=== PATIENT | male | born 1960 | race Caucasian/White ===

== ENCOUNTER 2024-03-17 10:08 | Emergency (ER) | payer OTHER, SELFPAY ==
[2024-03-17 10:15] VITALS: BP 146/83; PULSE 75; RESP 19; TEMP 37.2; O2SAT 97; BMI 20.2
[2024-03-17 10:46] VITALS: PULSE 90; RESP 16; O2SAT 98
--- NOTE | 2024-03-17 11:03 | XR_ITS ---
Examination: PA lateral chest 2 views TECHNIQUE: Upright PA lateral chest 2 views INDICATIONS: Fever coughing today. FINDINGS: Normal heart size No pneumonia or pulmonary edema The osseous structures are intact IMPRESSION: No pneumonia or pulmonary edema
--- NOTE | 2024-03-17 11:04 | EDNOTE_ITS ---
<Statement entered by Scarlett Izaguirre MD - 03/24/24 12:01> As co-signing physician, I was present and available for consult prn. I concur with the plan and care as documented by the midlevel provider. ED Weakness RME/HPI General Chief complaint: Weakness Stated complaint: WEAKNESS Time Seen by Provider: 03/17/24 11:05 Source: patient Arrival date/time: 03/17/24 10:08 63-year-old male with a history of hypertension, hyperlipidemia, and a CVA presents to the emergency room with a chief complaint of generalized weakness, sore throat, headache, congestion x 3 days. Mode of arrival: ambulatory Limitations: no limitations Related Data Home Medications ?Medication ?Instructions ?Recorded ?Confirmed buprenorphine 5 mcg/hour weekly 5 mcg topical QWEEK 05/13/23 05/14/23 transdermal patch meloxicam 15 mg tablet 15 mg PO DAILY PRN Pain 05/13/23 05/13/23 nebivolol 10 mg tablet 10 mg PO DAILY 05/13/23 05/14/23 Previous Rx's ?Medication ?Instructions ?Recorded penicillin V potassium 500 mg 500 mg PO BID 10 days #20 tabs 03/17/24 tablet Allergies Allergy/AdvReac Type Severity Reaction Status Date / Time codeine AdvReac Intermediate UPSET Verified 05/14/23 11:56 STOMACH Review of Systems Review of Systems Systems Reviewed: All systems reviewed, normal except as documented Constitutional Constitutional: Reports system reviewed and no additional complaints, except as documented, Denies fatigue, Denies fever(s), Reports headache(s) and Denies weakness Eyes Eyes: Reports system reviewed and no additional complaints, except as documented, Denies blurry vision and Denies change in vision ENT Ears, Nose, Mouth, and Throat: Reports system reviewed and no additional complaints, except as documented, Denies otalgia, Reports headache(s), Reports nasal congestion, Reports sore throat, Denies throat swelling and Denies vertigo Cardiovascular Cardiovascular: Reports system reviewed and no additional complaints, except as documented, Denies chest pain, Denies dyspnea and Denies dyspnea on exertion Respiratory Respiratory: Reports system reviewed and no additional complaints, except as documented, Denies chest congestion, Denies cough, Denies dyspnea, Denies dyspnea on exertion and Denies wheezing Gastrointestinal Gastrointestinal: Reports system reviewed and no additional complaints, except as documented, Denies abdominal pain, Denies cramping, Denies nausea and Denies vomiting Genitourinary Genitourinary: Reports system reviewed and no additional complaints, except as documented, Denies dysuria and Denies hematuria Musculoskeletal Musculoskeletal: Reports system reviewed and no additional complaints, except as documented and Denies back pain Integumentary/Breasts Skin/Breast: Reports system reviewed and no additional complaints, except as documented and Denies wounds Neurologic Neurologic: Reports system reviewed and no additional complaints, except as documented, Denies confusion, Reports headache(s), Denies lack of coordination, Denies vertigo and Denies weakness Psychiatric Psychiatric: Reports system reviewed and no additional complaints, except as documented, Denies anxiety, Denies confusion, Denies depression, Denies paranoia, Denies suicidal ideation and Denies tactile hallucinations Endocrine Endocrine: Reports system reviewed and no additional complaints, except as documented and Denies fatigue Hematologic/Lymphatic Hematologic/Lymphatic: Reports system reviewed and no additional complaints, except as documented and Denies lymphadenopathy Allergic/Immunologic Allergic/Immunologic: Reports system reviewed and no additional complaints, except as documented, Denies throat swelling, Denies urticaria and Denies wheezing Past Medical History Past Medical History NEUROLOGIC: Negative Neurological Disorders or Seizures CARDIAC: Positive Cardiac Disorders, Angina and Hypertension; Negative Congestive Heart Failure RESPIRATORY: Negative Chronic Obstructive Pulmonary Disease (COPD) GASTROINTESTINAL: Negative Gastrointestinal Disorders GENITOURINARY: Negative Genitourinary Disorders or Renal Disease MUSCULOSKELETAL: Positive Musculoskeletal Disorders and Arthritis ENDOCRINE: Positive Endocrine Disorders and Diabetes Mellitus Type 2 (resolved); Negative Diabetes Mellitus Type 1 HEMATOLOGIC: Negative Blood Disorders PSYCHO/SOCIAL: Positive Anxiety (resolved after quitting alcohol consumption) OTHER HISTORY: Positive Chicken Pox, Measles and Cancer; Negative Blood Transfusions, Blood Transfusion Reaction or Anesthesia Reactions Surgical History SURGICAL: Positive Neurologic Surgery (SIATIC NERVE SURGERY X3) Social History SMOKING STATUS: Former smoker ED Exam General Limitations: Present no limitations General appearance: Present alert and in no apparent distress Head Head exam: Present atraumatic Eye Eye exam: Present normal appearance, PERRL and EOMI ENT ENT exam: Present normal exam, normal oropharynx and mucous membranes moist Neck Neck exam: Present normal inspection, full ROM and trachea midline Chest Chest inspection: Present normal inspection and symmetric chest wall rise Respiratory Respiratory exam: Present normal lung sounds bilaterally; Absent respiratory distress, wheezes, stridor, accessory muscle use or prolonged expiratory phase Cardiovascular Cardiovascular exam: Present regular rate, normal rhythm and normal heart sounds Abdominal Exam Abdominal exam: Present soft and normal bowel sounds; Absent distention, tenderness, guarding, rebound or rigidity Extremities Exam Extremities exam: Present normal inspection and full ROM Back Exam Back exam: Present normal inspection and full ROM Neurological Exam Neurological exam: Present alert, oriented X3 and CN II-XII intact Psychiatric Psychiatric exam: Present normal affect and normal mood Skin Skin exam: Present warm, dry, intact and normal color Course Quality Measures none Orders Category Date Time Status Bedside COVID-19 Antigen Test NOW Care 03/17/24 11:03 Active Bedside Influenza A&B Antigen Test NOW Care 03/17/24 11:03 Completed Insert IV NOW Care 03/17/24 13:17 Active XR chest 2V Stat Exams 03/17/24 11:03 Completed CBC Stat Lab 03/17/24 11:50 Completed CMP [Comprehensive Metabolic Panel] Stat Lab 03/17/24 11:50 Completed Strep A Rapid Stat Lab 03/17/24 13:58 Completed Clindamycin/Ns 600 mg Ivpb [Cleocin/Ns Ivpb] Med 03/17/24 14:40 Discontinued 600 mg in 50 ml IV X1 Sodium Chloride 0.9% 1000 ml [Ns] 1,000 ml Med 03/17/24 13:18 Discontinued IV 999 mls/hr Vital Signs Vital signs: Vital Signs Temperature 98.9 F 03/17/24 10:15 Pulse Rate 75 03/17/24 10:15 Respiratory Rate 19 03/17/24 10:15 Blood Pressure 146/83 H 03/17/24 10:15 Pulse Oximetry (%) 97 03/17/24 10:15 Oxygen Delivery Method Room Air 03/17/24 10:15 O2 saturation 97% within normal limits Weakness MDM Narrative MDM Narrative:: 63-year-old male with a history of hypertension, hyperlipidemia, and a CVA presents to the emergency room with a chief complaint of generalized weakness, sore throat, headache, congestion x 3 days. Clinically the patient appears nontoxic and in no apparent distress. Physical examination shows clear bilateral lung sounds and a normal nontender abdomen. CBC and CMP show mild hyponatremia. A bag of saline was given to the patient as well as some antibiotics. Patient's posterior pharynx has exudates and a cobblestone appearance. Strep test was completed and was negative however due to the patient's presentation and pain antibiotics were sent to the patient's pharmacy patient was discharged and educated to follow-up with his primary care provider return to the emergency room for any evidence of worsening signs or symptoms Patient data External records reviewed:: [facility] previous records Clinical information provided by:: patient Social determinants that could affect healthcare access:: none Patient has the following chronic illnesses:: No chronic illness How is presenting disease/condition affected by chronic disease/condition?: no chronic disease Evaluation data The following diagnostics were reviewed and interpreted by me:: lab results and radiology exam(s) Lab and/or radiology exams considered but not ordered:: Labs and radiology exams considered and ordered Interpretation Summary: N/A Medications / Prescriptions Medications or Prescriptions considered but not ordered:: Medication given Medication administrations:: Medication Administration History Discontinued Medications Sodium Chloride (Ns) 1,000 mls @ 999 mls/hr IV .Q1H1M ONE Stop: 03/17/24 14:18 Last Infusion: 03/17/24 14:51 Dose: Infused Documented By: Admin: 03/17/24 13:52 Dose: 999 mls/hr Documented By: OA Clindamycin/Sodium Chloride (Cleocin/Ns Ivpb) 600 mg in 50 mls @ 100 mls/hr IV X1 ONE Stop: 03/17/24 15:09 Last Admin: 03/17/24 14:49 Dose: 100 mls/hr Documented By: YASMANY Medication given Consultations Consultation(s) initiated? (list below): No Diagnosis Weakness Differential Diagnosis: hypoglycemia, dehydration and other (Pharyngitis) Most likely diagnosis given after review of the tests above:: Pharyngitis Admission Indicated Admission indicated?: not indicated Admission Request Was there a request for admission?: No Disposition Plan Disposition Plan: Discharge Discharge Attestation Discharge Attestation: The patient and all family members were given an opportunity to ask questions and understood the discharge instructions. Discharge instructions specifically effects, indications for sooner follow up or return to the emergency department, and the expected course of current diagnosis. Patient condition: Stable Discharge Plan Plan Patient Disposition: HOME (Self Care) Prescriptions/Referrals Prescriptions/Med Rec: New penicillin V potassium 500 mg tablet 500 mg PO BID 10 Days Qty: 20 0RF No Action meloxicam 15 mg tablet 15 mg PO DAILY PRN (Reason: Pain) Patient Comments: TAKE 1 TABLET BY MOUTH EVERY DAY WITH FOOD NEEDED nebivolol 10 mg tablet 10 mg PO DAILY Patient Comments: TAKE 1 TABLET BY MOUTH EVERY DAY FOR 90 DAYS buprenorphine 5 mcg/hour patch weekly 5 mcg TOPICAL QWEEK Hold Instructions: Resume on 05/15/23. Patient Comments: APPLY 1 PATCH TRANSDERMALLY EVERY 7 DAYS Referrals: Sivakumar Coppola MD [Primary Care Provider] - In 1 week Problem List Clinical Impression: Pharyngitis Patient/Caregiver Discharge Instructions Education Materials: ED Pharyngitis, Report Pending Additional Instructions: Please follow-up with your primary care provider in the next 24 to 40 hours. Antibiotics are sent to your pharmacy please pick them up and take them as indicated. For any evidence of worsening signs or symptoms please return to the emergency r oom immediately Print Language: [place] Stand Alone Forms: Julia Award Info., Patient Portal Info Letter PA/CAITIE Supervising Physician PA/CAITIE Supervising Physician: Dr. IZAGUIRRE
[2024-03-17 12:14] LABS: Basophils % (Auto) 0 % (0-2.5); Eosinophils # (Auto) 0.1 Thou/mm3 (0.0-0.5); Eosinophils % (Auto) 1 % (0-10); Hematocrit 41.3 % (41.0-53.0); Hemoglobin 14.5 g/dL (13.5-16.0); Immature Granulocytes % (Auto) 0 % (0-0); Immature Granulocytes Auto 0.04 Thou/mm3 (0.00-0.00); Lymphocytes # (Auto) 1.7 Thou/mm3 (1.0-4.8); Lymphocytes % (Auto) 14 % (10-50); Mean Corpuscular HGB Conc 35.1 g/dl (31.0-37.0); Mean Corpuscular Hemoglobin 29.9 pg (25.0-35.0); Mean Corpuscular Volume 85 fL (80-100); Monocytes # (Auto) 1.7 Thou/mm3 (0.0-0.8); Monocytes % (Auto) 14 % (0-12); Neutrophils # (Auto) 8.8 Thou/mm3 (1.8-7.7); Neutrophils % (Auto) 71 % (37-80); Nucleated Red Blood Cell % 0 /100 WBC (0); Platelet Count 318 Thou/mm3 (140-440); RDW Standard Deviation 41.5 fL (35.1-43.9); Red Blood Count 4.85 Miln/mm3 (4.50-5.90); White Blood Count 12.3 Thou/mm3 (3.8-10.6)
[2024-03-17 12:29] LABS: Alanine Aminotransferase 17 U/L (10-49); Albumin, Serum 4.1 gm/dL (3.4-4.8); Albumin/Globulin Ratio 1.2 (1.2-2.2); Alkaline Phosphatase 93 U/L (46-116); Anion Gap 6 (7-16); Aspartate Amino Transferase 16 U/L (0-34); BUN/Creatinine Ratio 11 Ratio (12-20); Bilirubin,Total 0.8 mg/dL (0.3-1.2); Blood Urea Nitrogen 8 mg/dL (9-23); Calcium 9.2 mg/dL (8.3-10.6); Calcium (Corrected) 9.2 mg/dL (8.5-10.1); Carbon Dioxide 27.8 mMol/L (20.0-31.0); Chloride 95 mMol/L (98-107); Creatinine (Component) 0.7 mg/dL (0.6-1.3); Estimated Creatinine Clearance 100.5 mL/min (>60); Globulin 3.5 gm/dL (2.3-3.5); Glucose 114 mg/dL (74-106); Osmolality,Calculated 258 (275-295); Potassium 3.9 mMol/L (3.4-5.1); Sodium 129 mMol/L (136-145); Total Protein 7.6 gm/dL (5.7-8.2); eGFR > 60 See Note
[2024-03-17] MEDS: SODIUM CHLORIDE 0.9% 1000 ML 1,000 ML 999 ML IV (13:52)
[2024-03-17 14:35] LABS: Strep A Rapid Negative (Negative)
[2024-03-17] MEDS: CLINDAMYCIN/NS 600 MG IVPB 600 MG/50 ML BAG 100 MG IV (14:49)
[2024-03-17 15:52] VITALS: BP 124/82; PULSE 88; RESP 16; TEMP 36.6; O2SAT 99
== END 2024-03-17 15:52 | disposition home or self-care (01) ==
PROVIDERS: Nurse Practitioner Family; Emergency Provider Emergency Medicine; PCP Family Medicine
DX: J02.9 Acute pharyngitis, unspecified (principal)
CPT/HCPCS: 36415; 71046; 80053; 85025; 87400; 87651; 87811; 99284; J7030; S0077; J0737

== ENCOUNTER → 2024-04-10 | Outpatient (CLI) | payer OTHER, SELFPAY ==
--- NOTE | 2024-04-10 12:00 | XR_ITS ---
Examination: CT chest with intravenous contrast 2-D sagittal and coronal reconstructions Exam date and time: April 10, 2024 1220 hours INDICATIONS: Smoking history 30 years with 40 pound weight loss beginning September 2023 CTDI:vol (mGy) 8.18 DLP: (mGycm) 335 Comparison January 11, 2023 Technique: Multiple axial sections of the thorax have been obtained. Sections have been obtained, 3 mm slice thickness. Mediastinal and lung density settings have been obtained. Intravenous contrast administered, 60 cc Isovue-370. 2-D sagittal, coronal images obtained. Low dose protocols were performed. One or more of the following dose reduction techniques were used; automated exposure control, adjustment of the mA and/or KV according to patient size, use of iterative reconstruction technique. Findings: No thoracic aortic aneurysm dilatation or dissection No pulmonary artery emboli No paratracheal tracheobronchial or bronchopulmonary adenopathy 2 mm pulmonary nodule left upper lobe image 116 2 mm pulmonary nodule right upper lobe CTA No pneumonia or pulmonary edema No pleural disease No visualized liver or splenic lesion No gallstones No pancreatic mass Nodular thickening left adrenal gland IMPRESSION: No mediastinal lymphadenopathy Subcentimeter pulmonary nodules as above, with this study as baseline recommend continued 6 month follow-up CT chest without contrast
== END | disposition home or self-care (01) ==
PROVIDERS: PCP Registered Nurse; Referring Provider Registered Nurse; Visit Provider Registered Nurse
DX: R91.8 Other nonspecific abnormal finding of lung field (principal)
CPT/HCPCS: 71260; A4649; Q9967

== ENCOUNTER → 2024-04-12 | Outpatient (CLI) | payer OTHER, SELFPAY ==
[2024-04-12 17:11] LABS: Amphetamine/Methamp Scrn,U Negative (Negative); Barbiturate Screen,Urine Negative (Negative); Benzodiazepines Screen,Urine Negative (Negative); Benzoylecgonine Screen, Ur Negative (Negative); Fentanyl Screen,Urine Negative (Negative); Opiate Screen,Urine Positive (Negative); THC Screen,Urine Positive (Negative)
== END | disposition home or self-care (01) ==
LOC: SLDO 14:51
PROVIDERS: Referring Provider Registered Nurse; Visit Provider Registered Nurse
DX: Z79.891 Long term (current) use of opiate analgesic (principal)
CPT/HCPCS: 80307

== ENCOUNTER 2024-06-02 11:01 | Day surgery (SDC) | payer OTHER, SELFPAY ==
--- NOTE | 2024-06-01 07:00 | EKG_ITS ---
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1960 Requested By: Isacc Tsang Order Number: [id number] Reading MD: Isacc Tsang Measurements Intervals [place] Rate: 52 P: 58 AL: 190 QRS: -66 QRSD: 94 T: 7 QT: 438 QTc: 410 Interpretive Statements SINUS BRADYCARDIA POSSIBLE LEFT ATRIAL ENLARGEMENT [-0.1mV P WAVE IN V1/V2] INCOMPLETE RIGHT BUNDLE BRANCH BLOCK [90+ ms QRS DURATION, TERMINAL R IN V1/V2, 40+ ms S IN I/aVL/V4/V5/V6] LEFT ANTERIOR FASCICULAR BLOCK [QRS AXIS <= -45, QR IN I, RS IN II] Compared to ECG 09/23/2021 16:01:56 Sinus rhythm no longer present Myocardial infarct finding no longer present /store/S0/[id number]/[id number].pdf
[2024-06-01 12:26] LABS: Basophils # (Auto) 0.1 Thou/mm3 (0.0-0.2); Basophils % (Auto) 1 % (0-2.5); Eosinophils # (Auto) 0.6 Thou/mm3 (0.0-0.5); Eosinophils % (Auto) 6 % (0-10); Hematocrit 42.3 % (41.0-53.0); Hemoglobin 13.9 g/dL (13.5-16.0); Immature Granulocytes % (Auto) 0 % (0-0); Immature Granulocytes Auto 0.03 Thou/mm3 (0.00-0.00); Lymphocytes % (Auto) 31 % (10-50); Mean Corpuscular HGB Conc 32.9 g/dl (31.0-37.0); Mean Corpuscular Hemoglobin 29.8 pg (25.0-35.0); Mean Corpuscular Volume 91 fL (80-100); Monocytes # (Auto) 0.9 Thou/mm3 (0.0-0.8); Monocytes % (Auto) 9 % (0-12); Neutrophils # (Auto) 5.2 Thou/mm3 (1.8-7.7); Neutrophils % (Auto) 53 % (37-80); Nucleated Red Blood Cell % 0 /100 WBC (0); Platelet Count 255 Thou/mm3 (140-440); RDW Standard Deviation 46.1 fL (35.1-43.9); Red Blood Count 4.67 Miln/mm3 (4.50-5.90); White Blood Count 9.8 Thou/mm3 (3.8-10.6)
[2024-06-01 12:35] LABS: Partial Thromboplastin Time 28.2 Seconds (22.0-36.0); Prothrombin Time 10.9 Seconds (9.0-12.2)
[2024-06-01 12:53] LABS: Anion Gap 6 (7-16); BUN/Creatinine Ratio 10 Ratio (12-20); Blood Urea Nitrogen 8 mg/dL (9-23); Calcium 9.6 mg/dL (8.3-10.6); Carbon Dioxide 29.7 mMol/L (20.0-31.0); Chloride 103 mMol/L (98-107); Creatinine (Component) 0.8 mg/dL (0.6-1.3); Glucose 99 mg/dL (74-106); Osmolality,Calculated 275 (275-295); Potassium 4.3 mMol/L (3.4-5.1); Sodium 139 mMol/L (136-145); eGFR > 60 See Note
[2024-06-02] VITALS (15 sets, daily range): BP systolic 131–181; BP diastolic 66–103; PULSE 53–72; RESP 12–24; TEMP 36.9–37.1; O2SAT 96–99; BMI 20.3
--- NOTE | 2024-06-02 15:00 | PD.CARDCATH ---
Cardiac Cath Procedure Procedure Name Date of procedure: 06/02/2024 DIRECTOR OF TRANSPORTATION: Isacc Tsang MD PROCEDURE PERFORMED: 1. Left heart cardiac catheterization including right, left coronary angiograms and left ventriculogram 2. Ultrasound-guided access of the right radial artery 3. Conscious sedation for 30 minutes. Procedure Narrative HISTORY AND INDICATIONS: A 63 year old male patient with a past medical history of stable angina with no stents, stroke in 02/2024, polysubstance use disorder (Active marijuana), alcohol use disorder, active tobacco one pack smoker, and chronic back pain on hydrocodone, was brought in for an elective LHC with possible PCI. Patient initially came to the office with complaints of some shortness of breath on exertion and did have a nuclear stress test performed which was abnormal with stress-induced ischemia in the inferior and apical segments and hence was scheduled for the left heart cardiac catheterization. Patient was explained the risk benefits and alternatives of performing a left heart cardiac catheterization including the risk of bleeding, heart attack, stroke and in detail and the agreeable for the procedure. Consent signed, placed in the chart and H&P updated. DESCRIPTION OF PROCEDURE: The patient was brought to the cardiac catheterization lab and all asceptic precautions were followed. Patient was given 1 Mg of Versed and 50 mcg of fentanyl for moderate conscious sedation. 2 mL of lidocaine was given in the right wrist. The right radial artery was accessed via the ultrasound guidance as well as micropuncture technique. A 6 Ukrainian glide sheath was introduced. We then used a 5 Ukrainian TIG 4 catheter to perform the left and right coronary angiograms as well as a left ventriculogram which showed the following findings. 1. Left ventricular ejection fraction was normal at 60 to 65% without any regional wall motion abnormalities. LVEDP was normal at 9 mmHg. There was no significant transvalvular aortic gradient. 2. Right dominant circulation 3. Left main artery is a large-caliber vessel without any significant stenosis. 4. LAD is a large sized artery with 50% stenosis of mid LAD at the bifurcation of septal and diabonal with mild bridging, and a medium size diagonal and without show any significant disease. 5. LCx is a large sized artery with 50% stenosis, and a medium OM1 and small OM2 without any significant disease. 6. RCA is a large artery with 50-60% stenosis, and a medium RPDA and RPL without any significant disease. A radial band was used to achieve the hemostasis of the right radial artery access. Patient will be monitored in the cardiac orthopedic radiologic technologist for the next 2 to 3 hours and will be discharged home / telemetry later today if hemodynamically stable. Complications: None Specimens: None Blood loss: Estimated 5-10 ml Summary/findings: 1. Abnormal Stress test: Moderate CAD. LHC showed 50-60% stenosis of RCA, mid LAD at the bifurcation of septal and diagonal with mild bridging, and proximal LCx with the rest of coronaries without any angiographically significant obstruction. 2. LVEF was normal at 60-65% and normal LVEDP of 10 mmHg. No transvalvular aortic gradient. Recommendations: 1. Recommended aggressive risk factor modification and aggressive medical treatment 2. Recommended no lifting more than 5 pounds for next 7-10 days and follow up in my office in 7 days. Isacc Tsang MD Interventional Cardiology.
[2024-06-02] MEDS: ONDANSETRON INJ 2 MG/ML INJ 2 ML 4 MG IV (18:15)
== END 2024-06-02 19:00 | disposition home or self-care (01) ==
PROVIDERS: PCP Family Medicine; Referring Provider Internal Medicine Cardiovascular Disease; Visit Provider Internal Medicine Cardiovascular Disease
DX: I25.118 Atherosclerotic heart disease of native coronary artery with other forms of angina pectoris (principal); Z01.810 Encounter for preprocedural cardiovascular examination; Z86.73 Personal history of transient ischemic attack (TIA), and cerebral infarction without residual deficits; I10 Essential (primary) hypertension; J44.9 Chronic obstructive pulmonary disease, unspecified; F17.210 Nicotine dependence, cigarettes, uncomplicated
CPT/HCPCS: 93458; 36415; 80048; 85025; 85610; 85730; 93005; 99152; 99153; A4649; C1769; C1887; C1894; J0171; J0360; J0461; J1643; J2250; J2310; J2371; J2405; J3010; J3490; J2305

== ENCOUNTER → 2024-07-12 | Outpatient (CLI) | payer OTHER, SELFPAY ==
[2024-07-12 08:43] LABS: Basophils # (Auto) 0.1 Thou/mm3 (0.0-0.2); Basophils % (Auto) 1 % (0-2.5); Eosinophils # (Auto) 0.6 Thou/mm3 (0.0-0.5); Eosinophils % (Auto) 6 % (0-10); Hematocrit 41.9 % (41.0-53.0); Hemoglobin 14.1 g/dL (13.5-16.0); Immature Granulocytes % (Auto) 0 % (0-0); Immature Granulocytes Auto 0.02 Thou/mm3 (0.00-0.00); Lymphocytes # (Auto) 2.7 Thou/mm3 (1.0-4.8); Lymphocytes % (Auto) 27 % (10-50); Mean Corpuscular HGB Conc 33.7 g/dl (31.0-37.0); Mean Corpuscular Hemoglobin 30.5 pg (25.0-35.0); Mean Corpuscular Volume 91 fL (80-100); Monocytes # (Auto) 0.9 Thou/mm3 (0.0-0.8); Monocytes % (Auto) 9 % (0-12); Neutrophils # (Auto) 5.9 Thou/mm3 (1.8-7.7); Neutrophils % (Auto) 58 % (37-80); Nucleated Red Blood Cell % 0 /100 WBC (0); Platelet Count 260 Thou/mm3 (140-440); RDW Standard Deviation 45.3 fL (35.1-43.9); Red Blood Count 4.62 Miln/mm3 (4.50-5.90); White Blood Count 10.2 Thou/mm3 (3.8-10.6)
[2024-07-12 08:49] LABS: Glucose Estimated Average 114 mg/dL (80-131); Hemoglobin A1C 5.6 % Hgb (4.8-6.0)
[2024-07-12 08:50] LABS: Prostate Specific Antigen 0.36 ng/mL (0-4.00)
[2024-07-12 09:02] LABS: Alanine Aminotransferase 19 U/L (10-49); Albumin, Serum 3.9 gm/dL (3.4-4.8); Albumin/Globulin Ratio 1.4 (1.2-2.2); Alkaline Phosphatase 74 U/L (46-116); Anion Gap 3 (7-16); Aspartate Amino Transferase 22 U/L (0-34); BUN/Creatinine Ratio 11 Ratio (12-20); Bilirubin,Total 0.3 mg/dL (0.3-1.2); Blood Urea Nitrogen 9 mg/dL (9-23); Calcium 9.3 mg/dL (8.3-10.6); Calcium (Corrected) 9.4 mg/dL (8.5-10.1); Carbon Dioxide 29.6 mMol/L (20.0-31.0); Chloride 103 mMol/L (98-107); Cholesterol 109 mg/dL (132-200); Creatinine (Component) 0.8 mg/dL (0.6-1.3); Globulin 2.7 gm/dL (2.3-3.5); Glucose 144 mg/dL (74-106); HDL Cholesterol 36 mg/dL (40-60); LDL Cholesterol,Calculated 59 mg/dL (0-130); Magnesium 1.8 mg/dL (1.6-2.6); Osmolality,Calculated 273 (275-295); Potassium 4.9 mMol/L (3.4-5.1); Sodium 136 mMol/L (136-145); Total Protein 6.6 gm/dL (5.7-8.2); Triglycerides 69 mg/dL (30-150); eGFR > 60 See Note
[2024-07-12 09:31] LABS: Collection Type, Urine Clean Catch; Squamous Epithelial Cell,Urine 0 /hpf (0-5)
[2024-07-12 10:22] LABS: Bacteria,Urine Rare; Bilirubin,Urine Negative (Negative); Blood,Urine Negative (Negative); Clarity,Urine Clear (Clear/Hazy); Color,Urine Lt-Yellow (Lt Yel-Yel); Culture Indicated,Urine Not Indicated; Glucose, Urine Negative (Negative); Ketones,Urine Negative (Negative); Leukocyte Esterase,Urine Negative (Negative); Nitrite,Urine Negative (Negative); PH,Urine 6.5 (5.0-7.0); Protein,Urine Negative (Neg - Trace); RBC,Urine 1 /hpf (0-3); Specific Gravity,Urine 1.014 (1.001-1.035); Urobilinogen,Urine Negative mg/dL (0.0-1.0); WBC,Urine 1 /hpf (0-5)
== END | disposition home or self-care (01) ==
LOC: COPL 07:37
PROVIDERS: PCP Family Medicine; Referring Provider Registered Nurse; Visit Provider Registered Nurse
DX: R25.2 Cramp and spasm (principal); I10 Essential (primary) hypertension; N40.1 Benign prostatic hyperplasia with lower urinary tract symptoms; I69.351 Hemiplegia and hemiparesis following cerebral infarction affecting right dominant side
CPT/HCPCS: 36415; 80053; 80061; 81001; 83036; 83735; 84153; 85025

== ENCOUNTER → 2024-10-02 | Outpatient (CLI) | payer OTHER, SELFPAY ==
--- NOTE | 2024-10-02 09:28 | XR_ITS ---
Examination: Bilateral hands, 6 views. Technique: AP, Oblique, Lateral each hand total 6 views Date and time of exam: October 02, 2024 0930 hours INDICATIONS: Right hand pain one year left hand pain 3 weeks Findings: Moderate osteopenia. Mild to moderate bilateral osteoarthritis radiocarpal, first carpometacarpal, first metacarpophalangeal joints Moderate osteoarthritis distal interphalangeal joints second through fifth digits and interphalangeal joints first digits No erosive arthritis No fractures No cortical bone destruction IMPRESSION: Osteoarthritis as above
== END | disposition home or self-care (01) ==
PROVIDERS: PCP Registered Nurse; Referring Provider Registered Nurse; Visit Provider Registered Nurse
DX: M19.042 Primary osteoarthritis, left hand (principal); M19.041 Primary osteoarthritis, right hand
CPT/HCPCS: 73130

== ENCOUNTER → 2024-10-25 | Outpatient (CLI) | payer OTHER, SELFPAY ==
--- NOTE | 2024-10-25 16:30 | XR_ITS ---
Examination: CT chest, without intravenous contrast. Sagittal and coronal 2-D reconstructions. Exam date and time: October 25, 2024, 1707 hours Comparison April 10, 2024 INDICATIONS: CT chest April 10, 2024 2 mm pulmonary nodule left upper lobe, 2 mm pulmonary nodule right upper lobe, intermittent SOB one year CTDI:vol (mGy) 8.96 DLP: (mGycm) 374 Technique: Multiple 3.0 mm axial sections of the chest to been obtained. Bone and lung density settings are obtained. Sagittal and coronal 2-D reconstructions have been obtained. Low dose protocols were performed. One or more of the following dose reduction techniques were used; automated exposure control, adjustment of the mA and/or KV according to patient size, use of iterative reconstruction technique. Findings: Pulmonary artery segments are not enlarged Mild calcification left anterior descending coronary artery. No paratracheal tracheobronchial or bronchopulmonary adenopathy Stable 2 mm pulmonary nodule left upper lobe image 109 Stable 2 mm pulmonary nodule right upper lobe image 161 No new pulmonary nodules No interval pneumonia or pulmonary edema or pleural disease No visualized liver splenic lesion Contracted gallbladder No pancreatic or adrenal mass Kidneys partially visualized no hydronephrosis Moderate thoracic spondylosis IMPRESSION: Stable bilateral pulmonary nodules compared with April 10, 2024, no new pulmonary nodules No pneumonia pulmonary edema or pleural disease
== END | disposition home or self-care (01) ==
LOC: SCAT 16:00
PROVIDERS: PCP Family Medicine; Referring Provider Registered Nurse; Visit Provider Registered Nurse
DX: R91.8 Other nonspecific abnormal finding of lung field (principal)
CPT/HCPCS: 71250

== ENCOUNTER 2024-11-15 10:01 | Emergency (ER) | payer OTHER, SELFPAY ==
[2024-11-15] VITALS (10 sets, daily range): BP systolic 114–184; BP diastolic 52–103; PULSE 50–77; RESP 16–18; TEMP 36.4–36.8; O2SAT 97–100; BMI 21.3
--- NOTE | 2024-11-15 10:09 | EKG_ITS ---
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
--- NOTE | 2024-11-15 10:51 | PC.NURSE ---
Patient to er via ems from ambulance bay with c/o sob and abd. pain since yesterday, vomiting this am, patient denies having diarrhea, however, patient states he had 3 bm's this am which were normal. Skin is warm dry and slightly pale, Patient denies abd. pain and states pain stopped after he vomitted while in the er. Patient vomited approx. 100ml of liquid emesis. chart up to be seen by er provider. Call light within reach.
--- NOTE | 2024-11-15 11:24 | EDNOTE_ITS ---
ED Abdominal Pain RME/HPI General Chief Complaint: Abdominal Pain Stated complaint: ABD PAIN Time seen by provider: 11/15/24 11:14 Arrival date/time: 11/15/24 10:01 RME / HPI RME / HPI narrative: 64-year-old male patient with significant history of hypertension, chronic marijuana smoker, came in for evaluation regarding epigastric pain. Onset of symptoms since early this morning as epigastric pain, history of as dull ache, severity moderate associated with vomiting nonbloody severity moderate. Patient told me that he cannot take anything down to some vomiting. No fever noted no diarrhea noted last bowel movement this morning. Patient's last smoke marijuana yesterday. Denies any abdominal surgery. Related Data Home Medications ?Medication ?Instructions ?Recorded ?Confirmed aspirin 81 mg chewable tablet 81 mg PO DAILY 06/02/24 11/15/24 atorvastatin 80 mg tablet 80 mg PO DAILY 06/02/2406/06 hydrocodone 5 mg-acetaminophen 325 1 tab PO [id number] NE N pain 06/02/24 11/15/24 mg tablet carvedilol 6.25 mg tablet 6.25 mg PO BID 11/15/2406/06 fluoxetine 20 mg capsule 20 mg PO QDAY 11/15/2411/15 losartan 100 mg tablet 100 mg PO QDAY 11/15/2406/06 tamsulosin 0.4 mg capsule 0.4 mg PO QDAY 11/15/2406/06 Previous Rx's ?Medication ?Instructions ?Recorded ondansetron HCl 4 mg tablet 4 mg PO Q8H PRN nausea and 11/15/24 vomiting 5 days #20 tabs pantoprazole 40 mg tablet,delayed 40 mg PO QDAY #20 ta bs 11/15/24 release (Protonix) Allergies Allergy/AdvReac Type Severity Reaction Status Date / Time codeine AdvReac Intermediate UPSET Verified 05/14/23 11:56 STOMACH Review of Systems Review of Systems Narrative Review of Systems: Review of system reviewed and within normal limits except mentioned in HPI ED Exam Narrative Physical exam: VITAL SIGNS: Reviewed. GENERAL APPEARANCE: Alert and interactive, follows commands, no acute distress, HEAD AND FACE: Non-traumatic. ENT: PERRL, pink conjunctivitis, eyelid no trauma, Mucous membrane moist. NECK: Supple, nontender, no nuchal rigidity. CHEST: No tenderness, no crepitus, no paradoxical movement, no retractions. LUNGS: Clear, well ventilated, symmetric, no rales, no wheezing, no ronchi, no stridor, good breath sounds bilaterally. HEART: Regular rate, regular rhythm, no murmur, no gallops. ABDOMEN: Soft, positive bowel sounds, nondistended, no guarding, epigastric tenderness, no rebound, no masses, RECTAL: Deferred. GENITAL: Deferred. NEUROLOGICAL: Gross motor function intact sensory function intact, Appropriate for age. MUSCULOSKELETAL: low back nontender, full range of motion. EXTREMITIES: Nontender, full range of motion. SKIN: Color pink, dry, no rash, no lacerations, no abrasions, no contusions. LYMPHATICS: Deferred. Course Quality Measures none Orders Category Date Time Status Bedside COVID-19 Antigen Test NOW Care 11/15/24 11:01 Active Bedside Influenza A&B Antigen Test NOW Care 11/15/24 11:02 Completed Transformation Specialist Q4H START 00 Care 11/15/24 13:40 Active EKG (ED ONLY) *Do not use* NOW Care 11/15/24 10:09 Completed EKG (ED ONLY) *Do not use* NOW Care 11/15/24 11:31 Completed IV [Insert IV] NOW Care 11/15/24 11:47 Active Consult to Cardiology Stat Cons 11/15/24 18:52 Ordered EKG (ED Only) Stat Exams 11/15/24 10:09 Draft EKG (ED Only) Stat Exams 11/15/24 11:31 Ordered US gall bladder Stat Exams 11/15/24 11:29 Completed XR chest 1V Stat Exams 11/15/24 11:29 Completed CBC Stat Lab 11/15/24 11:40 Completed Comprehensive Metabolic Panel Stat Lab 11/15/24 11:40 Completed Partial Thromboplastin Time Stat Lab 11/15/24 11:40 Completed Troponin I Stat Lab 11/15/24 11:40 Completed Troponin I Stat Lab 11/15/24 13:21 Completed Troponin I Stat Lab 11/15/24 17:15 Completed Urinalysis, C/S if Indicated Stat Lab 11/15/24 13:46 Completed Aspirin Med 11/15/24 13:07 Discontinued 325 mg PO X1 ONE Famotidine Inj [Pepcid Inj] Med 11/15/24 11:29 Discontinued 20 mg IVP X1 ONE Ondansetron Inj [Zofran Inj] Med 11/15/24 11:29 Discontinued 4 mg IVP X1 ONE Ringers Lactated 1000 ml [Lactated Ringers] 1,000 ml Med 11/15/24 11:31 Discontinued IV 999 mls/hr Vital Signs Vital signs: Vital Signs Temperature 97.5 F 11/15/24 10:04 Pulse Rate 50 L 11/15/24 10:04 Respiratory Rate 17 11/15/24 10:04 Blood Pressure 168/74 H 11/15/24 10:04 Pulse Oximetry (%) 100 11/15/24 10:04 Oxygen Delivery Method Room Air 11/15/24 10:04 Abdominal Pain MDM MDM Narrative [facility] Narrative:: 64-year-old male patient with significant history of hypertension, chronic marijuana smoker, came in for evaluation regarding epigastric pain. Onset of symptoms since early this morning as epigastric pain, history of as dull ache, severity moderate associated with vomiting nonbloody severity moderate. Patient told me that he cannot take anything down to some vomiting. No fever noted no diarrhea noted last bowel movement this morning. Patient's last smoke marijuana yesterday. Denies any abdominal surgery. Patient's workup today is significant for leukocytosis 15.2, I did an ultrasound of the gallbladder came back came back unremarkable. Patient's troponin was noted to be 0.26, after 2 hours went up to 0.34, after 2 hours went up to 0.37. Patient was referred to Dr. Tsang, patient's business and services instructor, who examined the patient in the emergency room. Patient was cleared to go home and follow-up in the clinic Wednesday. Prior to discharge patient is not having any abdominal pain patient is not having any chest pain patient is tolerating p.o. fluids prior to discharge. Patient data External records reviewed:: None Clinical information provided by:: patient Social determinants that could affect healthcare access:: none Patient has the following chronic illnesses:: Hypertension, How is presenting disease/condition affected by chronic disease/condition?: exacerbated by Evaluation data The following diagnostics were reviewed and interpreted by me:: lab results, radiology exam(s) and EKG tracing(s) Lab and/or radiology exams considered but not ordered:: None Interpretation Summary: See results MDM Medications / Prescriptions Medications or Prescriptions considered but not ordered:: None Medication administrations:: Medication Administration History Discontinued Medications Aspirin (Aspirin 325 Mg Tablet) 325 mg PO X1 ONE Stop: 11/15/24 13:08 Last Admin: 11/15/24 13:42 Dose: 325 mg Documented By: SÁNCHEZ Famotidine (Famotidine Inj 10 Mg/Ml Vial 2 Ml) 20 mg IVP X1 ONE Stop: 11/15/24 11:30 Last Admin: 11/15/24 11:59 Dose: 20 mg Documented By: SÁNCHEZ Lactated Ringer's (Lactated Ringers) 1,000 mls @ 999 mls/hr IV .Q1H1M ONE Stop: 11/15/24 12:31 Last Infusion: 11/15/24 13:00 Dose: Infused Documented By: Admin: 11/15/24 12:00 Dose: 999 mls/hr Documented By: SÁNCHEZ Ondansetron HCl (Ondansetron Inj 2 Mg/Ml Inj 2 Ml) 4 mg IVP X1 ONE; Protocol Stop: 11/15/24 11:30 Last Admin: 11/15/24 11:59 Dose: 4 mg Documented By: SÁNCHEZ Zofran IV fluids aspirin and Pepcid Consultations Consultation(s) initiated? (list below): Yes Consultation #1 (Physician, Specialty, Details): Dr. Tsang, business and services instructor, take her Diagnosis Differential diagnosis abdominal pain: gastroenteritis and pancreatitis Most likely diagnosis given after review of the tests above:: Epigastric pain, nausea vomiting, elevated troponin Admission Indicated Admission indicated?: not indicated Admission Request Was there a request for admission?: No Disposition Plan Disposition Plan: Discharge Discharge Attestation Discharge Attestation: The patient and all family members were given an opportunity to ask questions and understood the discharge instructions. Discharge instructions specifically effects, indications for sooner follow up or return to the emergency department, and the expected course of current diagnosis. Patient condition: Stable Discharge Plan Plan Patient Disposition: HOME (Self Care) Discharge Disposition comment: Stable Prescriptions/Referrals Prescriptions/Med Rec: New pantoprazole [Protonix] 40 mg tablet,delayed release (DR/EC) 40 mg PO QDAY Qty: 20 0RF ondansetron HCl 4 mg tablet 4 mg PO Q8H PRN (Reason: nausea and vomiting) 5 Days Qty: 20 0RF No Action hydrocodone-acetaminophen 5-325 mg tablet 1 tab PO [id number] PRN (Reason: pain) Patient Comments: TAKE 0.5 TABLET BY MOUTH 3 TIMES PER DAY NEEDED aspirin 81 mg tablet,chewable 81 mg PO DAILY atorvastatin 80 mg tablet 80 mg PO DAILY tamsulosin 0.4 mg capsule 0.4 mg PO QDAY Patient Comments: TAKE 1 CAPSULE BY MOUTH EVERY DAY carvedilol 6.25 mg tablet 6.25 mg PO BID Patient Comments: TAKE 1 TABLET BY MOUTH TWICE A DAY WITH FOOD FOR 30 DAYS losartan 100 mg tablet 100 mg PO QDAY Patient Comments: TAKE 1 TABLET BY MOUTH EVERY DAY FOR 90 DAYS fluoxetine 20 mg capsule 20 mg PO QDAY Patient Comments: TAKE 1 CAPSULE BY MOUTH EVERY DAY Referrals: Samantha Vasquez, [employer] [Primary Care Provider] - In 1 week Problem List Clinical Impression: Nausea & vomiting, Acute epigastric pain, Elevated troponin Patient/Caregiver Discharge Instructions Discharge Activity: activity as tolerated Education Materials: ED Diet for Vomiting or ... Print Language: Amharic Stand Alone Forms: Julia Award Info., Patient Portal Info Letter PA/CAITIE Supervising Physician RADHA/CAITIE Supervising Physician: MD Mariela
--- NOTE | 2024-11-15 11:29 | XR_ITS ---
Examination: Abdomen sonogram, Limited Date and time of exam: November 15, 2024 1219 hours INDICATIONS: Epigastric pain today Technique: Real-time olivas scale transabdominal sonographic images of the upper abdomen obtained. Findings: Normal gallbladder. Normal common bile duct 0.2 cm Pancreatic head 2.2 cm Liver 14.3 cm fatty infiltration Normal hepatopedal portal venous flow Patent IVC IMPRESSION: Normal gallbladder
--- NOTE | 2024-11-15 11:29 | XR_ITS ---
Examination: AP chest single view Technique one AP portable upright chest single view Date and time: November 15, 2024 1149 hours INDICATIONS: Shortness of breath chest pain today. FINDINGS: Normal heart size. Lungs are clear. Moderate osteopenia IMPRESSION: No active disease.
[2024-11-15 11:53] LABS: Basophils # (Auto) 0.1 Thou/mm3 (0.0-0.2); Basophils % (Auto) 0 % (0-2.5); Eosinophils # (Auto) 0.0 Thou/mm3 (0.0-0.5); Eosinophils % (Auto) 0 % (0-10); Hematocrit 47.6 % (41.0-53.0); Hemoglobin 16.3 g/dL (13.5-16.0); Immature Granulocytes Auto 0.04 Thou/mm3 (0.00-0.00); Lymphocytes # (Auto) 1.5 Thou/mm3 (1.0-4.8); Lymphocytes % (Auto) 10 % (10-50); Mean Corpuscular HGB Conc 34.2 g/dl (31.0-37.0); Mean Corpuscular Hemoglobin 31.1 pg (25.0-35.0); Mean Corpuscular Volume 91 fL (80-100); Monocytes # (Auto) 0.5 Thou/mm3 (0.0-0.8); Monocytes % (Auto) 3 % (0-12); Neutrophils # (Auto) 13.1 Thou/mm3 (1.8-7.7); Neutrophils % (Auto) 86 % (37-80); Nucleated Red Blood Cell # 0.00 Thou/mm3 (0.00-0.00); Nucleated Red Blood Cell % 0 /100 WBC (0); Platelet Count 250 Thou/mm3 (140-440); RDW Standard Deviation 43.7 fL (35.1-43.9); Red Blood Count 5.24 Miln/mm3 (4.50-5.90); White Blood Count 15.2 Thou/mm3 (3.8-10.6)
[2024-11-15] MEDS: ONDANSETRON INJ 2 MG/ML INJ 2 ML 4 MG IVP (11:59)
[2024-11-15] MEDS: FAMOTIDINE INJ 10 MG/ML VIAL 2 ML 20 MG IVP (11:59)
[2024-11-15] MEDS: RINGERS LACTATED 1000 ML 1,000 ML 999 ML IV (12:00)
[2024-11-15 12:06] LABS: Partial Thromboplastin Time 26.4 Seconds (22.0-36.0)
[2024-11-15 12:22] LABS: Alanine Aminotransferase 27 U/L (10-49); Albumin, Serum 4.8 gm/dL (3.4-4.8); Albumin/Globulin Ratio 1.5 (1.2-2.2); Alkaline Phosphatase 136 U/L (46-116); Anion Gap 12 (7-16); Aspartate Amino Transferase 25 U/L (0-34); BUN/Creatinine Ratio 13 Ratio (12-20); Bilirubin,Total 0.9 mg/dL (0.3-1.2); Blood Urea Nitrogen 10 mg/dL (9-23); Calcium 10.7 mg/dL (8.3-10.6); Calcium (Corrected) 10.7 mg/dL (8.5-10.1); Carbon Dioxide 28.4 mMol/L (20.0-31.0); Chloride 98 mMol/L (98-107); Creatinine (Component) 0.8 mg/dL (0.6-1.3); Estimated Creatinine Clearance 91.6 mL/min (>60); Globulin 3.2 gm/dL (2.3-3.5); Glucose 131 mg/dL (74-106); Osmolality,Calculated 276 (275-295); Potassium 4.3 mMol/L (3.4-5.1); Sodium 138 mMol/L (136-145); Total Protein 8.0 gm/dL (5.7-8.2); eGFR > 60 See Note
[2024-11-15 12:35] LABS: Troponin I 0.265 ng/mL (0.0-0.045)
[2024-11-15 13:59] LABS: Collection Type, Urine Clean Catch
[2024-11-15 14:05] LABS: Troponin I 0.342 ng/mL (0.0-0.045)
[2024-11-15 14:21] LABS: Amorphous Crystals,Urine Present (Absent); Bacteria,Urine Rare; Bilirubin,Urine Negative (Negative); Blood,Urine Negative (Negative); Color,Urine Yellow (Lt Yel-Yel); Culture Indicated,Urine Not Indicated; Glucose, Urine Negative (Negative); Hyaline Casts,Urine < 1 /hpf (0-1); Ketones,Urine 2+ (Negative); Leukocyte Esterase,Urine Negative (Negative); Nitrite,Urine Negative (Negative); PH,Urine 8.0 (5.0-7.0); Protein,Urine Trace (Neg - Trace); RBC,Urine 6 /hpf (0-3); Specific Gravity,Urine 1.018 (1.001-1.035); Squamous Epithelial Cell,Urine < 1 /hpf (0-5); Urobilinogen,Urine Negative mg/dL (0.0-1.0); WBC,Urine 1 /hpf (0-5)
[2024-11-15 14:50] LABS: Clarity,Urine Hazy (Clear/Hazy)
--- NOTE | 2024-11-15 15:00 | PC.NURSE ---
Patient provided with pudding for food tolerance test, per María TREJO
--- NOTE | 2024-11-15 16:47 | PC.NURSE ---
Patient able to eat pudding and drink 8 oz of water without n/vomiting, patient denies pain, will notify provider.
[2024-11-15 17:57] LABS: Troponin I 0.379 ng/mL (0.0-0.045)
--- NOTE | 2024-11-15 18:55 | PD.IMCONS ---
HPI Data of Consult Primary Care Provider: Samantha Vasquez NP Consult Narrative cc:: cc: Meds Home Medications and Allergies Home Medications ?Medication ?Instructions ?Recorded ?Confirmed ?Type aspirin 81 mg chewable tablet 81 mg PO DAILY 06/02/24 11/15/24 History atorvastatin 80 mg tablet 80 mg PO DAILY 06/02/24 11/15/24 History hydrocodone 5 mg-acetaminophen 325 1 tab PO [id number] PRN pain 06/02/24 11/15/24 History mg tablet carvedilol 6.25 mg tablet 6.25 mg PO BID 11/15/24 11/15/24 History fluoxetine 20 mg capsule 20 mg PO QDAY 11/15/24 11/15/24 History losartan 100 mg tablet 100 mg PO QDAY 11/15/24 11/15/24 History tamsulosin 0.4 mg capsule 0.4 mg PO QDAY 11/15/24 11/15/24 History Allergies Allergy/AdvReac Type Severity Reaction Status Date / Time codeine AdvReac Intermediate UPSET Verified 05/14/23 11:56 STOMACH Exam Vital Signs Temp Pulse Resp BP Pulse Ox O2 Del Method 98.2 F 57 L 18 141/52 H 97 Room Air 11/15/24 18:00 11/15/24 18:00 11/15/24 18:00 11/15/24 18:00 11/15/24 18:00 11/15/24 18:00 Results Labs 11/15/24 11:40 11/15/24 11:40 Labs: Short CBC 11/15/24 Range/Units 11:40 WBC 15.2 H (3.8-10.6) Thou/mm3 Hgb 16.3 H (13.5-16.0) g/dL Hct 47.6 (41.0-53.0) % Plt Count 250 (140-440) Thou/mm3 BMP 11/15/24 11:40 Sodium 138 Potassium 4.3 Chloride 98 Carbon Dioxide 28.4 BUN 10 Creatinine 0.8 Glucose 131 H Calcium 10.7 H Cardiac Enzymes 11/15/24 11/15/24 11/15/24 Range/Units 11:40 13:21 17:15 Troponin I 0.265 H* 0.342 H* 0.379 H* (0.0-0.045) ng/mL Liver Function 11/15/24 Range/Units 11:40 Total Bilirubin 0.9 (0.3-1.2) mg/dL AST 25 (0-34) U/L ALT 27 (10-49) U/L Alkaline Phosphatase 136 H (46-116) U/L Albumin 4.8 (3.4-4.8) gm/dL Urine 11/15/24 Range/Units 13:46 Urine Color Yellow (Lt Yel-Yel) Urine Clarity Hazy (Clear/Hazy) Urine pH 8.0 H (5.0-7.0) Ur Specific [place] 1.018 (1.001-1.035) Urine Protein Trace (Neg - Trace) Urine Glucose (UA) Negative (Negative)
== END 2024-11-15 19:14 | disposition home or self-care (01) ==
PROVIDERS: Nurse Practitioner Family; Emergency Provider Emergency Medicine; PCP Registered Nurse
DX: R10.13 Epigastric pain (principal); R11.2 Nausea with vomiting, unspecified; R79.89 Other specified abnormal findings of blood chemistry; I10 Essential (primary) hypertension
CPT/HCPCS: 36415; 71045; 76705; 80053; 81001; 84484; 85025; 85730; 87400; 87811; 93005; 96361; 96374; 96375; 99284; J2405; J3490; J7120; A9270

== ENCOUNTER → 2025-02-05 | Outpatient (CLI) | payer OTHER, SELFPAY ==
[2025-02-05 11:57] LABS: Alanine Aminotransferase 35 U/L (10-49); Albumin, Serum 4.2 gm/dL (3.4-4.8); Albumin/Globulin Ratio 1.5 (1.2-2.2); Alkaline Phosphatase 83 U/L (46-116); Anion Gap 10 (7-16); Aspartate Amino Transferase 29 U/L (0-34); BUN/Creatinine Ratio 9 Ratio (12-20); Bilirubin,Total 0.6 mg/dL (0.3-1.2); Blood Urea Nitrogen 7 mg/dL (9-23); Calcium 9.4 mg/dL (8.3-10.6); Calcium (Corrected) 9.4 mg/dL (8.5-10.1); Carbon Dioxide 24.8 mMol/L (20.0-31.0); Cardiac Risk Estimate 2.7 RATIO (4.0-6.7); Chloride 104 mMol/L (98-107); Cholesterol 106 mg/dL (132-200); Creatinine (Component) 0.8 mg/dL (0.6-1.3); Globulin 2.8 gm/dL (2.3-3.5); Glucose 81 mg/dL (74-106); HDL Cholesterol 40 mg/dL (40-60); LDL Cholesterol,Calculated 57 mg/dL (0-130); Osmolality,Calculated 274 (275-295); Potassium 4.4 mMol/L (3.4-5.1); Sodium 139 mMol/L (136-145); Total Protein 7.0 gm/dL (5.7-8.2); Triglycerides 43 mg/dL (30-150); eGFR > 60 See Note
== END | disposition home or self-care (01) ==
LOC: COPL 10:09
PROVIDERS: PCP Family Medicine; Referring Provider Registered Nurse; Visit Provider Registered Nurse
DX: I67.9 Cerebrovascular disease, unspecified (principal)
CPT/HCPCS: 36415; 80053; 80061